=== PATIENT | male | born 2005 | race Caucasian/White ===

== ENCOUNTER 2024-06-14 22:20 | Emergency (ER) | payer MEDICAID ==
[~2024-06-14] VITALS: Ht 185.4 cm; Wt 81.8 kg
[2024-06-14 22:31] VITALS: TEMP 98.7
[2024-06-15 00:07] VITALS: BP 126/82; PULSE 75
== END 2024-06-15 00:07 | disposition home or self-care (01) ==
LOC: COL.ER 22:20
DX: S62.613A Displaced fracture of proximal phalanx of left middle finger, initial encounter for closed fracture (principal); F17.290 Nicotine dependence, other tobacco product, uncomplicated; W20.8XXA Other cause of strike by thrown, projected or falling object, initial encounter